=== PATIENT | female | born 2000 | race Caucasian/White ===

== ENCOUNTER 2019-03-12 15:30 | Emergency (ER) | payer MEDICAID ==
[2019-03-12] MEDS ORDERED: OXYCODONE-ACETAMINOPHEN 5-325 MG TABLET PO ONE ×2 (16:07→19:25)
--- NOTE | 2019-03-12 16:12 | ER Document Report ---
ED Medical Screen (RME) - General Chief Complaint: Ankle Pain Stated Complaint: FOOT PAIN Time Seen by Provider: 03/12/19 16:07 Mode of Arrival: Wheelchair Information source: Patient Notes: 18-year-old female presented to ED for puncture wound to the left ankle. [place] her in the ankle and she has had severe pain to the ankle since then. Patient does have a puncture wound to this lateral aspect of the left ankle. She has been soaking in hot water since arrival to the ED with some relief of pain. She will be treated with Percocet in the emergency room pit area and then sent to x-ray to ensure there is no foreign body in the wound. Patient is alert oriented respirations regular and unlabored speaking in full sentences. I have greeted and performed a rapid initial assessment of this patient. A comprehensive ED assessment and evaluation of the patient, analysis of test results and completion of medical decision making process will be conducted by an additional ED providers. TRAVEL OUTSIDE OF THE [place] IN LAST 30 DAYS: No - Related Data Allergies/Adverse Reactions: No Known Allergies Allergy (Unverified 03/12/19 15:46) Past Medical History - Social History Chew tobacco use (# tins/day): No Frequency of alcohol use: Occasional Drug Abuse: None Renal/ Medical History: Denies: Hx Peritoneal Dialysis Physical Exam - Vital signs Vitals: Temp Pulse Resp BP Pulse Ox 97.9 F 95 H 20 137/89 H 95 03/12/19 15:42 03/12/19 15:42 03/12/19 15:42 03/12/19 15:42 03/12/19 15:42 Course - Vital Signs Vital signs: Temp Pulse Resp BP Pulse Ox 97.9 F 95 H 20 137/89 H 95 03/12/19 15:42 03/12/19 15:42 03/12/19 15:42 03/12/19 15:42 03/12/19 15:42
--- NOTE | 2019-03-12 17:42 | RADIOLOGY REPORT (SQ) ---
EXAM DESCRIPTION: ANKLE LEFT COMPLETE COMPLETED DATE/TIME: 03/12/2019 4:36 pm REASON FOR STUDY: possible sting ray carter COMPARISON: None. EXAM PARAMETERS: NUMBER OF VIEWS: Three views. TECHNIQUE: AP, lateral and oblique radiographic images acquired of the left ankle. LIMITATIONS: None. FINDINGS: MINERALIZATION: Normal. BONES: No acute fracture or dislocation. No worrisome bone lesions. JOINTS: No effusion. SOFT TISSUES: No significant soft tissue swelling. No radiopaque foreign body. OTHER: No other significant finding. IMPRESSION: NO FRACTURE.No radiopaque foreign body. TECHNICAL DOCUMENTATION: JOB ID: [id number] [place]-72 2010 [employer]- All Rights Reserved Reading location - IP/workstation name: [email or web address]
--- NOTE | 2019-03-12 19:08 | ER Document Report ---
HPI - HPI Time Seen by Provider: 03/12/19 16:07 Pain Level: 3 Notes: RME note: 18-year-old female presented to ED for puncture wound to the left ankle. [place] her in the ankle and she has had severe pain to the ankle since then. Patient does have a puncture wound to this lateral aspect of the left ankle. She has been soaking in hot water since arrival to the ED with some relief of pain. She will be treated with Percocet in the emergency room pit area and then sent to x-ray to ensure there is no foreign body in the wound. Patient is alert oriented respirations regular and unlabored speaking in full sentences. - REPRODUCTIVE Reproductive: DENIES: : Past Medical History - General Information source: Patient - Social History Smoking Status: Never Smoker Chew tobacco use (# tins/day): No Frequency of alcohol use: Occasional Drug Abuse: None Family History: Reviewed & Not Pertinent Patient has suicidal ideation: No Patient has homicidal ideation: No Renal/ Medical History: Denies: Hx Peritoneal Dialysis Vertical Provider Document - CONSTITUTIONAL Notes: PHYSICAL EXAMINATION: GENERAL: Well-appearing, well-nourished and in no acute distress. HEAD: Atraumatic, normocephalic. EYES: Pupils equal round extraocular movements intact, conjunctiva are normal. ENT: Nares patent NECK: Normal range of motion LUNGS: No respiratory distress Musculoskeletal: Normal range of motion NEUROLOGICAL: Normal speech, normal gait. PSYCH: Normal mood, normal affect. SKIN: Puncture wound noted to the left medial ankle, mild swelling and erythema noted surrounding the site. Strong dorsalis pedis pulse, normal motor and sensation distal to injury. - INFECTION CONTROL TRAVEL OUTSIDE OF THE [place] IN LAST 30 DAYS: No Course - Re-evaluation Re-evalutation: X-rays negative for any retained foreign body. Patient will be placed on pain medications and doxycycline. Patient understands ED return precautions. Patient will follow-up with primary care. The patient's emergency department workup and current diagnosis were explained to the patient and or family. Follow-up instructions were provided. Medications if prescribed were discussed. Instructions for when to return to the emergency department including specific worrisome symptoms were discussed with the patient and/or family. - Vital Signs Vital signs: Temp Pulse Resp BP Pulse Ox 97.9 F 95 H 20 137/89 H 95 08/23/19 15:42 03/12/19 15:42 03/12/19 15:42 03/12/19 15:42 03/12/19 15:42 Discharge - Discharge Clinical Impression: encounter with sting ray Condition: Stable Disposition: HOME, SELF-CARE Additional Instructions: You are seen today for a encounter with a stingray. The x-ray does not show any evidence of retained foreign body. It is very important that you take the antibiotics as prescribed, finish the entire course even if your symptoms resolve. Follow-up with your primary care provider in 2 to 3 days for a recheck. Prescriptions: Doxycycline Hyclate 100 mg PO BID #20 capsule Oxycodone HCl/Acetaminophen [Percocet 5-325 mg Tablet] 1 tab PO Q4H PRN #10 tablet PRN Reason:
[2019-03-12 19:34] VITALS: BP 111/69
== END 2019-03-12 19:34 | disposition home or self-care (01) ==
LOC: ER 15:30
DX: T63.511A Toxic effect of contact with stingray, accidental (unintentional), initial encounter (principal); Y92.832 Beach as the place of occurrence of the external cause
CPT/HCPCS: 99283